=== PATIENT | male | born 1985 | race Caucasian/White ===

== ENCOUNTER 2020-01-17 00:59 | Emergency (ER) | payer MEDICAID ==
[~2020-01-17] VITALS: Ht 165.1 cm; Wt 100.0 kg
[2020-01-17] MEDS ORDERED: KETOROLAC 30MG/ML VIAL IM ONE (01:45)
[2020-01-17 03:36] VITALS: BP 125/84
== END 2020-01-17 03:36 | disposition home or self-care (01) ==
LOC: ER 01:43
DX: R51 Headache (principal); R11.10 Vomiting, unspecified
CPT/HCPCS: 96372; 99283; J1885